=== PATIENT | male | born 1980 | race Caucasian/White ===

== ENCOUNTER 2016-06-19 08:36 | Emergency (ER) | payer BC ==
[2016-06-19] MEDS ORDERED: PROPARACAINE HCL 0.5% 300 GTTS/BOT SOLN.DROP ONE (08:46)
== END 2016-06-19 09:35 | disposition home or self-care (01) ==
LOC: ED 08:36
DX: H57.12 Ocular pain, left eye (principal)
CPT/HCPCS: 99283 ×2; A9270